=== PATIENT | male | born 1975 | race African-American/Black ===

== ENCOUNTER 2017-08-03 22:56 | Emergency (ER) | payer SELFPAY ==
[2017-08-03] MEDS: SMZ/TMP 800/160MG TABLET. PO (23:26)
[2017-08-03] MEDS: CEPHALEXIN 250 MG CAPSULE. PO (23:29)
== END 2017-08-03 23:23 | disposition home or self-care (01) ==
LOC: ER 22:56
DX: L03.116 Cellulitis of left lower limb (principal)
CPT/HCPCS: 99283

== ENCOUNTER 2017-08-07 21:32 | Emergency (ER) | payer SELFPAY ==
[2017-08-07] MEDS: cefTRIAXone IM 1 GM VIAL IM (22:39)
== END 2017-08-07 22:54 | disposition home or self-care (01) ==
LOC: ER 21:32
DX: L03.116 Cellulitis of left lower limb (principal)
CPT/HCPCS: 96372; 99283; J0696